=== PATIENT | male | born 1980 | race Two or more races ===

== ENCOUNTER 2024-06-09 09:25 | Day surgery (SDC) | payer BC, SELFPAY ==
[2024-06-06 14:27] VITALS: BMI 45.1
[2024-06-09] VITALS (13 sets, daily range): BP systolic 124–153; BP diastolic 73–88; PULSE 68–108; RESP 13–20; TEMP 36.4–36.7; O2SAT 95–98; BMI 45.3
[2024-06-09] MEDS: MEPERIDINE INJ 25 MG/ML VIAL (ASD USE ONLY) IVP (11:27)
--- NOTE | 2024-06-09 12:23 | SUR.PHASEII ---
PATIENT INTO RECOVERY WITH NO ACUTE DISTRESS NOTED, V/S STABLE , PATIENT AROUSABLE TO PAINFUL STIMULI, ORAL AIRWAY IN PLACE WITH 2L VIA NS, PATIENT REPOSITIONED FOR COMFORT, REPORT RECEIVED FROM KONSTANTIN VAZQUEZ.
[2024-06-09] MEDS: SODIUM CHLORIDE 0.9% 500 ML 500 ML 20 ML IV (12:25)
[2024-06-09] MEDS: ONDANSETRON INJ 2 MG/ML INJ 2 ML 4 MG IV (12:26)
[2024-06-09] MEDS: MIDAZOLAM INJ 1 MG/ML VIAL 2 ML (ASD USE ONLY) 2 MG IV (12:26)
[2024-06-09] MEDS: fentaNYL CIT INJ 50 mCg/ML AMP 2ML (ASD USE ONLY) IV (12:26)
[2024-06-09] MEDS: DiphenhydrAMINE INJ 50 MG/ML VIAL 25 MG IV (12:27)
--- NOTE | 2024-06-09 12:40 | SUR.PHASEII ---
PATIENT NOW AROUSABLE ON CALLING, ORAL AIRWAY REMOVED. PATIENT NOW ON ROOM AIR. PATIENT V/S REMAIN STABLE.
--- NOTE | 2024-06-09 12:50 | SUR.PHASEII ---
PATIENT REMIANS AWAKE WITH EYES OPEN AND ABLE TO HOLD A CONVERSATION. V/S REMAIN STABLE AND WNL. NO COMPLAINTS OF PAIN OR NAUSEA AT THIS TIME.
--- NOTE | 2024-06-09 13:15 | SUR.PHASEII ---
PATIENT'S MYCHAL SPEAKS BOTH [place] AND ENGLISH. DISCHARGE INSTRUCTIONS PRINTED IN ENGLISH PER PATIENT REQUEST. D/C INSTRUCTIONS VERBALLY GIVEN IN [place] TO . VERBALIZES UNDERSTANDING. PATIENT DISCHARGED HOME AT 1311
== END 2024-06-09 13:15 | disposition home or self-care (01) ==
PROVIDERS: PCP Nurse Practitioner Primary Care; Referring Provider Specialist; Visit Provider Specialist
PROC: 0DBE8ZX Excision of Large Intestine, Via Natural or Artificial Opening Endoscopic, Diagnostic (ICD-10-PCS; CPT 45380; principal; 2024-06-09 09:30)
PROC: (CPT 43239; 2024-06-09 09:30)
DX: K64.1 Second degree hemorrhoids (principal)
CPT/HCPCS: 45378; A4649; J1200; J2175; J2250; J2405; J3010; J7040